=== PATIENT | female | born 1935 | race Caucasian/White ===

== ENCOUNTER 2017-01-23 15:08 | Observation (INO) | payer MEDICARE ==
[~2017-01-23] VITALS: Ht 170.2 cm; Wt 80.5 kg
[2017-01-23] VITALS (9 sets, daily range): BP systolic 122–173; BP diastolic 61–78; PULSE 71–91; RESP 17–20; TEMP 97.9–99.5; O2SAT 90–97
[~2017-01-23 15:08] MED LIST: ALEN70 PO; AMOX500T PO; ASPI81 PO; CALTTAB2 PO; FISH1000 PO; LORT7.5T3 PO; SUDA30TA PO
--- NOTE | 2017-01-23 16:22 | PD ---
HPI Chief Complaint: General Weakness Time Seen by Provider: 16:21 Travel History International Travel<30 days: No Contact w/Intl Traveler<30days: No Traveled to known affect area: No History of Present Illness HPI 81-year-old female came to the emergency room brought by her daughter with history of episodic confusion especially yesterday. Yesterday evening she was sitting on the porch smoking cigarettes when she was unable to get up because her knees have been hurting. Her daughter came to check on her and noticed that the computer was on while patient was outside in the porch which is unusual for her and she did not remember some of the events. This is not usual for the patient. However patient did not want to come to the emergency room yesterday. Today when her daughter took her to her primary care in mention about this they asked her to be brought to the emergency room to be evaluated. Currently patient is awake and answering questions appropriately. She does say that she thinks she has a UTI. She is aware of the date and the time and place. She was little hypoxic in triage but the rest of her vital signs were within normal limits. [facility] Past Medical History Narrative Medical List of her past medical, surgical, social and family history was reviewed from the nursing note. Arthritis: No Asthma: No Autoimmune Disease: No Blood Disorders: No Anxiety: No Depression: No Heart Rhythm Problems: No Cancer: No Cardiovascular Problems: No High Cholesterol: Yes Chemotherapy: No Chest Pain: No Congestive Heart Failure: No COPD: No Cerebrovascular Accident: No Diabetes: No Endocrine: No GERD: No Glaucoma: No Genitourinary: Yes Headaches: No Hepatitis: No Hiatal Hernia: No Hypertension: No Immune Disorder: No Kidney Stones: Yes Musculoskeletal: No Neurologic: No Psychiatric: No Reproductive: No Respiratory: No Myocardial Infarction: No Radiation Therapy: No Renal Failure: No Seizures: No Sickle Cell Disease: No Sleep Apnea: No Thyroid Disease: No Ulcer: No Past Surgical History Abdominal Surgery: Yes (cholestectomy/APPY) AICD: No Arteriovenous Shunt: No Cardiac Surgery: No Ear Surgery: No Endocrine Surgery: No Eye Surgery: Yes (LEFT CATARACT SURGERY) Genitourinary Surgery: No Gynecologic Surgery: No Insulin Pump: No Joint Replacement: No Oral Surgery: Yes (TONSILLECTOMY;PARTIAL UPPER DENTURES) Pacemaker: No Thoracic Surgery: No Social History Alcohol Use: No Tobacco Use: Yes Substance Use: No Allergies-Medications (Allergen,Severity, Reaction): Coded Allergies: No Known Allergies (Verified , 01/23/17) Comments No known drug allergies. Reported Meds & Prescriptions Reported Meds & Active Scripts Active Reported Aspirin 81 (Aspirin) 81 Mg Tabdr 81 Mg PO DAILY Narrative Medication List of her home medications reviewed from the nursing note. Review of Systems Except as stated in HPI: all other systems reviewed are Neg Physical Exam Narrative GENERAL: Awake, alert, elderly and frail, moderate distress SKIN: Focused skin assessment warm/dry. HEAD: Atraumatic. Normocephalic. EYES: Pupils equal and round. No scleral icterus. No injection or drainage. ENT: No nasal bleeding or discharge. Mucous membranes pink and moist. NECK: Trachea midline. No JVD. CARDIOVASCULAR: Regular rate and rhythm. No murmur appreciated. RESPIRATORY: No accessory muscle use. Clear to auscultation. Breath sounds equal bilaterally. GASTROINTESTINAL: Abdomen soft, non-tender, nondistended. Hepatic and splenic margins not palpable. MUSCULOSKELETAL: No obvious deformities. No clubbing. No cyanosis. No edema. NEUROLOGICAL: Awake and alert. No obvious cranial nerve deficits. Motor grossly within normal limits. Normal speech. PSYCHIATRIC: Appropriate mood and affect; insight and judgment normal. Data Data Last Documented VS Vital Signs Date Time Temp Pulse Resp B/P Pulse Ox O2 Delivery O2 Flow Rate FiO2 01/23/17 17:58 97.9 71 17 173/74 97 Room Air Orders Urinalysis - C+S If Indicated (01/23/17 15:20) Prothrombin Time / Inr (Pt) (01/23/17 16:34) Complete Blood Count With Diff (01/23/17 16:34) Comprehensive Metabolic Panel (01/23/17 16:34) Creatine Kinase (Cpk) (01/23/17 16:34) Troponin I (01/23/17 16:34) Ct Brain W/O Iv Contrast(Rout) (01/23/17 16:34) Ecg Monitoring (01/23/17 16:34) Iv Access Insert/Monitor (01/23/17 16:34) Oximetry (01/23/17 16:34) Sodium Chloride 0.9% Flush (Ns Flush) (01/23/17 16:45) Urine Culture (01/23/17 16:50) Ceftriaxone Inj (Rocephin Inj) (01/23/17 17:45) Nitrofurantoin Monohyd Macrocr (Macrobid (01/23/17 17:45) Blood Culture (01/23/17 17:44) Sodium Chlor 0.9% 1000 Ml Inj (Ns 1000 M (01/23/17 17:45) CKMB (01/23/17 16:50) CKMB% (01/23/17 16:50) Admit Order (Ed Use Only) (01/23/17 18:22) Labs Laboratory Tests Test 01/23/17 01/23/17 16:20 16:50 Prothrombin Time 11.6 SEC Prothromb Time International 1.0 RATIO Ratio White Blood Count 9.7 TH/MM3 Red Blood Count 4.70 MIL/MM3 Hemoglobin 15.2 GM/DL Hematocrit 43.6 % Mean Corpuscular Volume 92.8 FL Mean Corpuscular Hemoglobin 32.4 PG Mean Corpuscular Hemoglobin 35.0 % Concent Red Cell Distribution Width 13.7 % Platelet Count 116 TH/MM3 Mean Platelet Volume 9.0 FL Neutrophils (%) (Auto) 76.7 % Lymphocytes (%) (Auto) 12.3 % Monocytes (%) (Auto) 10.6 % Eosinophils (%) (Auto) 0.0 % Basophils (%) (Auto) 0.4 % Neutrophils # (Auto) 7.4 TH/MM3 Lymphocytes # (Auto) 1.2 TH/MM3 Monocytes # (Auto) 1.0 TH/MM3 Eosinophils # (Auto) 0.0 TH/MM3 Basophils # (Auto) 0.0 TH/MM3 CBC Comment DIFF FINAL Differential Comment Sodium Level 137 MEQ/L Potassium Level 4.3 MEQ/L Chloride Level 102 MEQ/L Carbon Dioxide Level 25.1 MEQ/L Anion Gap 10 MEQ/L Blood Urea Nitrogen 21 MG/DL Creatinine 1.17 MG/DL Estimat Glomerular Filtration 44 ML/MIN Rate Random Glucose 89 MG/DL Calcium Level 9.1 MG/DL Total Bilirubin 1.2 MG/DL Aspartate Amino Transf 71 U/L (AST/SGOT) Alanine Aminotransferase 24 U/L (ALT/SGPT) Alkaline Phosphatase 62 U/L Total Creatine Kinase 1106 U/L Creatine Kinase MB 12.4 NG/ML Creatine Kinase MB % 1.1 % Troponin I LESS THAN 0.02 NG/ML Total Protein 7.2 GM/DL Albumin 3.5 GM/DL Urine Color DARK-YELLOW Urine Turbidity CLOUDY Urine pH 5.5 Urine Specific [place] 1.029 Urine Protein 100 mg/dL Urine Glucose (UA) NEG mg/dL Urine Ketones TRACE mg/dL Urine Occult Blood MOD Urine Nitrite NEG Urine Bilirubin NEG Urine Urobilinogen 8.0 MG/DL Urine Leukocyte Esterase LARGE Urine RBC 21 /hpf Urine WBC /hpf Urine WBC Clumps MANY Urine Squamous Epithelial 2 /hpf Cells Urine Bacteria MANY /hpf Urine Hyaline Casts 50 /lpf Urine Mucus MANY /lpf Microscopic Urinalysis Comment CATH-CULTURE IND MDM Medical Decision Making Medical Screen Exam Complete: Yes Emergency Medical Condition: Yes Medical Record Reviewed: Yes Differential Diagnosis UTI, TIA, early onset dementia, electrolyte abnormalities Narrative Course 5:49 PM awaiting for the chemistry to be resulted. CBC is within acceptable limits. UA is grossly abnormal for UTI. I have given her a dose of IV Rocephin and by mouth Macrobid. Head CT is negative. If the chemistry comes back to be within normal limit I'll discharge her home on Macrobid. I'm also giving her a liter of IV fluid bolus since the UA was positive for some ketones. 6:13 PM chemistry result came back and patient has moderately high CPK. At this point given her frailness, significant UTI and this rhabdomyolysis I decided to admit her. Awaiting for the hospitalist call back. Procedures EKG Prior to Arrival: No Diagnosis Primary Impression: Confusion Additional Impressions: UTI (urinary tract infection) Qualified Code: N39.0 - Urinary tract infection without hematuria, site unspecified Rhabdomyolysis Qualified Code: M62.82 - Non-traumatic rhabdomyolysis Admitting Information Admitting Physician Requests: Admit Alina Cyr MD Jan 23, 2017 16:22
[2017-01-23] MEDS: SODIUM CHLORIDE 0.9% FLUSH 10 ML FLUSH IVF PRN ×2 (16:44→17:58)
[2017-01-23 17:27] LABS: AUTOMATED NEUTROPHIL # 7.4 TH/MM3 (1.8-7.7); BASOPHIL % 0.4 % (0.0-2.0); HEMATOCRIT 43.6 % (35.0-46.0); HEMO FLAGS DIFF FINAL; LYMPH % 12.3 % (9.0-44.0); LYMPHOCYTE # 1.2 TH/MM3 (1.0-4.8); MEAN CELL VOLUME 92.8 FL (80.0-100.0); MEAN CORPUSCULAR HEMOGLOBIN 32.4 PG (27.0-34.0); MONO % 10.6 % (0.0-8.0); NEUT % 76.7 % (16.0-70.0); PLATELET COUNT 116 TH/MM3 (150-450); RED CELL DISTRIBUTION WIDTH 13.7 % (11.6-17.2); WHITE BLOOD COUNT 9.7 TH/MM3 (4.0-11.0)
[2017-01-23 17:32] LABS: PROTHROMBIN TIME - PATIENT 11.6 SEC (9.8-11.6)
[2017-01-23 17:35] LABS: BACTERIA, URINE MANY /hpf; BLOOD, URINE MOD (NEG); COMMENT (UR) CATH-CULTURE IND; CULTURE IF INDICATED CATH CULTURE IND; GLUCOSE,URINE NEG (NEG); HYALINE CAST, URINE 50 /lpf (RARE); KETONE, URINE TRACE mg/dL (NEG); MUCUS URINE MANY /lpf (OCC); NITRITE,URINE NEG (NEG); PH, URINE 5.5 (5.0-8.5); SQUAMOUS EPITHELIAL CELL URINE 2 /hpf (0-5)
[2017-01-23 17:38] LABS: URINE COLOR DARK-YELLOW (YELLW/STRAW)
--- NOTE | 2017-01-23 17:42 | RADRPT ---
EXAM DATE/TIME: 01/23/2017 17:26 [facility] COMPARISON: No previous studies available for comparison. INDICATIONS : Altered mental status. RADIATION DOSE: 44.16 CTDIvol (mGy) MEDICAL HISTORY : None SURGICAL HISTORY : Cholecystectomy. Appendectomy. ENCOUNTER: Initial ACUITY: 1 day PAIN SCALE: 0/10 LOCATION: cranial TECHNIQUE: Multiple contiguous axial images were obtained of the head. Using automated exposure control and adj ustment of the mA and/or kV according to patient size, radiation dose was kept as low as reasonably a chievable to obtain optimal diagnostic quality images. DICOM format image data is available electro nically for review and comparison. FINDINGS: CEREBRUM: The ventricles are normal for age. No evidence of midline shift, mass lesion, hemorrhage or acute in farction. No extra-axial fluid collections are seen. POSTERIOR FOSSA: The cerebellum and brainstem are intact. The 4th ventricle is midline. The cerebellopontine angle i s unremarkable. EXTRACRANIAL: The visualized portion of the orbits is intact. SKULL: The calvaria is intact. No evidence of skull fracture. CONCLUSION: Normal examination for a patient of this age. Rolan Seay MD on January 23, 2017 at 17:38 Board Certified Radiologist. This report was verified electronically.
[2017-01-23] MEDS ORDERED: SODIUM CHLOR 0.9% 1000 ML INJ 1,000 ML IV ONE (17:45)
[2017-01-23] MEDS ORDERED: NITROFURANTOIN MONOHYD MACROCR 100 MG CAP PO ONE (17:45)
[2017-01-23] MEDS ORDERED: cefTRIAXone INJ 1,000 MG in SODIUM CHLORIDE 0.9% INJ 100 ML IV ONE (17:45)
[2017-01-23 18:05] LABS: ALKALINE PHOSPHATASE 62 U/L (45-117); ALT (GPT) 24 U/L (10-53); ANION GAP 10 MEQ/L (5-15); AST (GOT) 71 U/L (15-37); BICARBONATE 25.1 MEQ/L (21.0-32.0); BLOOD UREA NITROGEN 21 MG/DL (7-18); CHLORIDE 102 MEQ/L (98-107); CREATINE KINASE 1106 U/L (26-192); GLOMERULAR FILTRATION RATE 44 ML/MIN (>89); SODIUM (NA) 137 MEQ/L (136-145); TOTAL BILIRUBIN ADULT 1.2 MG/DL (0.2-1.0)
[2017-01-23 18:06] LABS: POTASSIUM 4.3 MEQ/L (3.5-5.1)
[2017-01-23 18:19] LABS: CKMB 12.4 NG/ML (0.5-3.6)
[2017-01-23] MEDS ORDERED: ASPI-110 PO (18:43)
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
[2017-01-23] MEDS ORDERED: ACETAMINOPHEN/HYDROcodone 325 MG/7.5 MG TAB PO PRN (21:00)
[2017-01-23] MEDS ORDERED: RESP: ALBUTEROL 2.5 MG/IPRATROPIUM 0.5 MG NEB (PRN) NEB (21:00)
[2017-01-23] MEDS ORDERED: cloNIDine HCL 0.1 MG TAB PO PRN (21:00)
[2017-01-23] MEDS: SODIUM CHLOR 0.9% 1000 ML INJ 1,000 ML IV SCH (22:22)
--- NOTE | 2017-01-23 22:36 | RADRPT ---
EXAM DATE/TIME: 01/23/2017 21:49 [facility] COMPARISON: No previous studies available for comparison. INDICATIONS : Cough and weakness. MEDICAL HISTORY : None. SURGICAL HISTORY : Cholecystectomy. Appendectomy. ENCOUNTER: Initial ACUITY: 1 day PAIN SCORE: 0/10 LOCATION: Bilateral chest FINDINGS: There is indistinctness and mild engorgement of the central bronchopulmonary markings and equalizatio n of flow between the lower and upper lobes. Mild interstitial prominence bilaterally and Kendrick sep montrell lines in the lower lateral lungs bilaterally. No evidence of pleural effusion. The heart is nor mal in size. Intramedullary hansa proximal left humerus CONCLUSION: Findings suggest interstitial edema and pulmonary venous hypertension. oDni Amaya MD on January 23, 2017 at 22:33 Board Certified Radiologist. This report was verified electronically.
[2017-01-24] VITALS (9 sets, daily range): BP systolic 125–140; BP diastolic 58–66; PULSE 67–90; RESP 18–24; TEMP 97–98.8; O2SAT 92–94
[2017-01-24 08:49] LABS: ALKALINE PHOSPHATASE 57 U/L (45-117); ALT (GPT) 23 U/L (10-53); ANION GAP 9 MEQ/L (5-15); AST (GOT) 49 U/L (15-37); BICARBONATE 24.6 MEQ/L (21.0-32.0); BLOOD UREA NITROGEN 15 MG/DL (7-18); CHLORIDE 105 MEQ/L (98-107); CREATINE KINASE 570 U/L (26-192); GLOMERULAR FILTRATION RATE 82 ML/MIN (>89); POTASSIUM 3.8 MEQ/L (3.5-5.1); SODIUM (NA) 139 MEQ/L (136-145); TOTAL BILIRUBIN ADULT 0.8 MG/DL (0.2-1.0)
[2017-01-24] MEDS: SODIUM CHLOR 0.9% 1000 ML INJ 1,000 ML IV SCH (08:55)
[2017-01-24 09:15] LABS: CKMB 5.2 NG/ML (0.5-3.6)
--- NOTE | 2017-01-24 10:58 | HHI.PR ---
Subjective Remarks Pt overall feeling better strength morales She is requiring more oxygen this morning, she is on 3L currently CXR yesterday with findings suggesting interstitial edema and pulmonary venous hypertension. Objective Vitals Vital Signs Date Time Temp Pulse Resp B/P Pulse Ox O2 Delivery O2 Flow Rate FiO2 01/24/17 07:40 98.8 73 24 140/66 92 01/24/17 07:35 92 Nasal Cannula 3.00 01/24/17 04:09 97.0 78 18 132/62 93 01/24/17 04:00 90 01/24/17 00:00 78 01/23/17 22:30 95 01/23/17 22:29 84 01/23/17 22:06 99.5 85 18 122/61 90 01/23/17 21:19 95 Nasal Cannula 1.00 01/23/17 20:49 83 19 166/78 94 Nasal Cannula 2 01/23/17 19:05 72 20 151/67 95 Nasal Cannula 2 01/23/17 17:58 97.9 71 17 173/74 97 Room Air 01/23/17 16:41 76 17 98 Room Air 01/23/17 16:39 17 97 Room Air 01/23/17 15:09 98.8 91 20 128/67 92 Room Air Result Diagram: 01/23/17 1650 01/24/17 0732 Other Results Laboratory Tests Test 01/23/17 01/23/17 01/24/17 16:20 16:50 07:32 Prothrombin Time 11.6 SEC Prothromb Time International 1.0 RATIO Ratio White Blood Count 9.7 TH/MM3 Red Blood Count 4.70 MIL/MM3 Hemoglobin 15.2 GM/DL Hematocrit 43.6 % Mean Corpuscular Volume 92.8 FL Mean Corpuscular Hemoglobin 32.4 PG Mean Corpuscular Hemoglobin 35.0 % Concent Red Cell Distribution Width 13.7 % Platelet Count 116 TH/MM3 Mean Platelet Volume 9.0 FL Neutrophils (%) (Auto) 76.7 % Lymphocytes (%) (Auto) 12.3 % Monocytes (%) (Auto) 10.6 % Eosinophils (%) (Auto) 0.0 % Basophils (%) (Auto) 0.4 % Neutrophils # (Auto) 7.4 TH/MM3 Lymphocytes # (Auto) 1.2 TH/MM3 Monocytes # (Auto) 1.0 TH/MM3 Eosinophils # (Auto) 0.0 TH/MM3 Basophils # (Auto) 0.0 TH/MM3 CBC Comment DIFF FINAL Differential Comment Urine Color DARK-YELLOW Urine Turbidity CLOUDY Urine pH 5.5 Urine Specific [place] 1.029 Urine Protein 100 mg/dL Urine Glucose (UA) NEG mg/dL Urine Ketones TRACE mg/dL Urine Occult Blood MOD Urine Nitrite NEG Urine Bilirubin NEG Urine Urobilinogen 8.0 MG/DL Urine Leukocyte Esterase LARGE Urine RBC 21 /hpf Urine WBC /hpf Urine WBC Clumps MANY Urine Squamous Epithelial 2 /hpf Cells Urine Bacteria MANY /hpf Urine Hyaline Casts 50 /lpf Urine Mucus MANY /lpf Microscopic Urinalysis Comment CATH-CULTURE IND Sodium Level 137 MEQ/L 139 MEQ/L Potassium Level 4.3 MEQ/L 3.8 MEQ/L Chloride Level 102 MEQ/L 105 MEQ/L Carbon Dioxide Level 25.1 MEQ/L 24.6 MEQ/L Anion Gap 10 MEQ/L 9 MEQ/L Blood Urea Nitrogen 21 MG/DL 15 MG/DL Creatinine 1.17 MG/DL 0.69 MG/DL Estimat Glomerular Filtration 44 ML/MIN 82 ML/MIN Rate Random Glucose 89 MG/DL 95 MG/DL Calcium Level 9.1 MG/DL 8.1 MG/DL Total Bilirubin 1.2 MG/DL 0.8 MG/DL Aspartate Amino Transf 71 U/L 49 U/L (AST/SGOT) Alanine Aminotransferase 24 U/L 23 U/L (ALT/SGPT) Alkaline Phosphatase 62 U/L 57 U/L Total Creatine Kinase 1106 U/L 570 U/L Creatine Kinase MB 12.4 NG/ML 5.2 NG/ML Creatine Kinase MB % 1.1 % 0.9 % Troponin I LESS THAN 0.02 NG/ML Total Protein 7.2 GM/DL 5.5 GM/DL Albumin 3.5 GM/DL 2.6 GM/DL Imaging Last Impressions Head CT 01/23/17 1634 Signed Impressions: Service Date/Time: Monday, January 23, 2017 17:26 - CONCLUSION: Normal examination for a patient of this age. Rolan Seay MD Chest X-Ray 01/23/17 0000 Signed Impressions: Service Date/Time: Monday, January 23, 2017 21:49 - CONCLUSION: Findings suggest interstitial edema and pulmonary venous hypertension. Doni Amaya MD Objective Remarks General: NAD, AAOx3 Chest: CTA, poor inspiratory effort Cardiac: Regular Abd: +BS, soft ND/NT Ext: Mild bilateral LE edema A/P Problem List: (1) UTI (urinary tract infection) Status: Acute Plan: - Pt is an 81 y/o female who presented to the ED with intermittent confusion and generalized weakness over the last few days. - Pts UA was abnormal at admission, which was likely contributing to confusion. - Urine culture is pending. - Pt currently on Rocephin (2) Rhabdomyolysis Status: Acute Plan: - Pts labs at admission noted some mild rahbdo with total CK 1106 - Pt was given IVF in the ED and overnight with improvement in her CK to 570 today. - Pt requiring more supplemental O2 today and some signs on previous CXR of interstitial edema. - Stop IVF, encourage oral intake - Repeat CXR today - Consider 2D echo. (3) Osteoarthritis (arthritis due to wear and tear of joints) Status: Chronic Plan: - Patient is typically ambulatory occasionally using a walker or cane for support. - However over the last 2-3 days she has been unable to ambulate independently. This may be associated with the UTI, mild rhabdo and significant osteoarthritis. - We'll provide pain medication as needed - PT evaluation. Assessment and Plan Patient examined. Assessment and plan formulated with Ratna Hopkins PA-C. I agree with the above. Problem Qualifiers (1) UTI (urinary tract infection): Qualified Code: N39.0 - Urinary tract infection without hematuria, site unspecified (2) Rhabdomyolysis: Qualified Code: M62.82 - Non-traumatic rhabdomyolysis Ratna Hopkins Jan 24, 2017 10:58 Gerry Carranza DO Jan 25, 2017 09:34
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
[2017-01-24] MEDS ORDERED: cefTRIAXone INJ 1,000 MG in SODIUM CHLORIDE 0.9% INJ 100 ML IV SCH (18:00)
[2017-01-24] MEDS ORDERED: MAGNESIUM HYDROXIDE SUSP 30 ML CUP PO PRN (18:45)
[2017-01-25 00:55] VITALS: BP 128/68; PULSE 67; RESP 16; TEMP 98.4; O2SAT 92
[2017-01-25 05:10] VITALS: BP 123/58; PULSE 72; RESP 16; TEMP 98.8; O2SAT 91
[2017-01-25 07:47] VITALS: BP 144/66; PULSE 63; RESP 18; TEMP 98; O2SAT 93
[2017-01-25] MEDS: SODIUM CHLORIDE 0.9% FLUSH 10 ML FLUSH IVF PRN (08:13)
--- NOTE | 2017-01-25 09:33 | HHI.FF ---
Face to Face Verification Diagnosis: (1) UTI (urinary tract infection) (2) Rhabdomyolysis (3) Confusion (4) Osteoarthritis (arthritis due to wear and tear of joints) Physical Therapy Order: Evaluate and Treat, Improve ambulation, Strength and gait training Home Health Nursing Order: Medical education Signs/symptoms of disease process Medication education-adverse effect Nursing assessment with vital signs I have seen patient Michaela Lara on 01/25/17. My clinical findings support the need for the requested home health care services because: Ltd mobility - disease progression Deconditioned w/ increased weakness Med compliance is questionable Limited ability to care for self Need for psychosocial assistance I certify that my clinical findings support that this patient is homebound because: Impaired cognitive ability/safety Unsteady gait/balance Unsafe to leave home unassisted Need for psychosocial assistance Unable to use public transportation Gerry Carranza DO Jan 25, 2017 09:33
--- NOTE | 2017-01-25 09:40 | HHI.PR ---
Subjective Remarks No new complaints. Objective Vitals Vital Signs Date Time Temp Pulse Resp B/P Pulse Ox O2 Delivery O2 Flow Rate FiO2 01/25/17 07:47 98.0 63 18 144/66 93 01/25/17 05:10 98.8 72 16 123/58 91 01/25/17 00:55 98.4 67 16 128/68 92 01/24/17 21:00 98.4 72 18 131/61 94 01/24/17 18:51 93 Nasal Cannula 3.00 01/24/17 15:43 98.7 72 22 125/58 93 01/24/17 12:00 98.0 67 22 139/64 92 01/24/17 01/24/17 01/25/17 15:00 23:00 07:00 Intake Total 320 ml Balance 320 ml Intake Oral 220 ml IV Total 100 ml # Voids 3 1 Result Diagram: 01/23/17 1650 01/24/17 0732 Imaging Last Impressions Head CT 01/23/17 1634 Signed Impressions: Service Date/Time: Monday, January 23, 2017 17:26 - CONCLUSION: Normal examination for a patient of this age. Rolan Seay MD Chest X-Ray 01/23/17 0000 Signed Impressions: Service Date/Time: Monday, January 23, 2017 21:49 - CONCLUSION: Findings suggest interstitial edema and pulmonary venous hypertension. Doni Amaya MD Objective Remarks General: NAD, AAOx3 Chest: clear x b/l Cardiac: Regular Abd: +BS, soft ND/NT Ext: Mild bilateral LE edema A/P Problem List: (1) UTI (urinary tract infection) Status: Acute Plan: - Pt is an 81 y/o female who presented to the ED with intermittent confusion and generalized weakness over the last few days. - Urine Cx (01/23/17) --> Klebsiella Pneumonia - Rocephin (01/23 - 01/25/17) - change abx to levaquin upon discharge x 3d - f/u with PCP, Dr. Seth Mijares, in 1 week (2) Rhabdomyolysis Status: Acute Plan: - Pts labs at admission noted some mild rahbdo with total CK 1106 (01/25/17), 570 (01/24/17) - CXR (01/25/17) --> improved aeration (3) Osteoarthritis (arthritis due to wear and tear of joints) Status: Chronic Plan: - Patient is typically ambulatory occasionally using a walker or cane for support. - However over the last 2-3 days prior to admission, she has been unable to ambulate independently. - This is likely d/t her UTI, mild rhabdo and significant osteoarthritis. - discharge to SNF Assessment and Plan Patient examined. Assessment and plan formulated with Ratna Hopkins PA-C. I agree with the above. Problem Qualifiers (1) UTI (urinary tract infection): Qualified Code: N39.0 - Urinary tract infection without hematuria, site unspecified (2) Rhabdomyolysis: Qualified Code: M62.82 - Non-traumatic rhabdomyolysis Gerry Carranza DO Jan 25, 2017 09:40
[2017-01-25] MEDS ORDERED: LEVA500T20 PO (09:44)
--- NOTE | 2017-01-25 09:46 | HHI.DCPOC ---
Discharge Care Plan Diagnosis: (1) UTI (urinary tract infection) (2) Confusion (3) Rhabdomyolysis (4) Osteoarthritis (arthritis due to wear and tear of joints) Goals to Promote Your Health * To prevent worsening of your condition and complications * To maintain your health at the optimal level Directions to Meet Your Goals Take your medications as prescribed Follow your dietary instruction Follow activity as directed Keep your appointments as scheduled Take your immunizations and boosters as scheduled If your symptoms worsen call your PCP, if no PCP go to Urgent Care Center or Emergency Room Smoking is Dangerous to Your Health. Avoid second hand smoke Call the 24-hour hour crisis hotline for domestic abuse at Gerry Carranza DO Jan 25, 2017 09:46
[2017-01-25 11:46] LABS: POTASSIUM 3.8 MEQ/L (3.5-5.1)
[2017-01-25 11:50] VITALS: BP 129/60; PULSE 64; RESP 18; TEMP 97.9; O2SAT 93
[2017-01-25 12:06] LABS: CKMB 6.8 NG/ML (0.5-3.6)
== END 2017-01-25 14:58 | disposition home or self-care (01) ==
LOC: NEPE 15:08 → NEDA 18:24 → NEPFCDU 21:53
PROVIDERS: ADMIT Hospitalist; ATTEND Hospitalist
DX: N39.0 Urinary tract infection, site not specified (principal); B96.1 Klebsiella pneumoniae [K. pneumoniae] as the cause of diseases classified elsewhere; M62.82 Rhabdomyolysis; M19.90 Unspecified osteoarthritis, unspecified site; R41.0 Disorientation, unspecified; F17.210 Nicotine dependence, cigarettes, uncomplicated
CPT/HCPCS: 70450; 71010; 71020; 80048; 80053; 81001; 82550; 82552; 84484; 85025; 85610; 87040; 87077; 87086; 87186; 94664; 96361; 96365; 96366; 97162; 99285; G0378; G8987; G8988; J0696; J7030